=== PATIENT | male | born 1990 | race Caucasian/White ===

== ENCOUNTER 2016-09-15 19:18 | Emergency (ER) | payer OTHER ==
[2016-09-15 19:56] VITALS: TEMP 98.1; BMI 22.1
--- NOTE | 2016-09-15 20:05 | EDPRACDOC ---
<Franky Campbell - Last Filed: 09/15/16 21:44> - General Information Information Source: Patient - History of Present Illness Onset: 1 month HPI: Pt c/o L shoulder pain with deformity x 1 month. Pt states initial injury was falling onto shoulder while doing inverted push ups. Pt states unable to move shoulder and has numbness and weakness. Pt states when arm is out of sling it falls to side. R hand dominate. Description: Reports: With Use, At Rest Location: Reports: Left Circumstances: Reports: Spontaneous Relevant History: Reports: Shoulder Dislocation Dominant Hand: Right Pain Severity: Moderate Able to Move Shoulder?: No Associated Signs & Symptoms: Reports: Swelling, Numbness, Neck pain, Arm pain <Ines Baca - Last Filed: 09/15/16 22:06> - General Information Stated Complaint: LT SHOULDER PAIN NO RECENT INJURY NO FEELING IN L Time Seen by Provider: 09/15/16 19:58 Home Medications: Home Medications Cyclobenzaprine HCl [Flexeril] 10 mg PO TID 09/15/16 Oxycodone HCl/Acetaminophen [Percocet 5-325 mg Tablet] 1 tab PO Q6H PRN #20 tab 09/15/16 Allergies/Adverse Reactions: Allergies Allergy/AdvReac Type Severity Reaction Status Date / Time ibuprofen Allergy Anaphylaxis Verified 09/15/16 21:03 * Penicillins Allergy Anaphylaxis Verified 09/15/16 21:03 * ED Past Medical History - History Reviewed Yes Nurses notes reviewed and agree except as marked - Social Medical History Smoking Status: Current status unknown ETOH: None Substance Abuse: None <Ines Baca - Last Filed: 09/15/16 22:06> EDM Review of Systems - Review of Systems Constitutional: No Symptoms Reported. negative: Fever, Chills, Weakness, Fatigue, Loss of Appetite Respiratory: No Symptoms Reported. negative: Cough, Brassy Cough, Barky Cough, Shortness of Breath, Wheezing, Hemoptysis Cardiovascular: No Symptoms Reported. negative: Chest Pain, Palpitations, Syncope, Edema, Orthopnea, PND, Skin Mottling, Cyanosis Neurological: Numbness Musculoskeletal: Arm, Neck, Shoulder Integumentary: No Symptoms Reported. negative: Itching, Rash, Bruising, Wound Allergic/Immunologic: No Symptoms Reported. negative: Hives, Itching Hematologic: No Symptoms Reported. negative: Lymphadenopathy, Easy Bruising, Easy Bleeding Psychiatric: No Symptoms Reported. negative: Anxiety, Depression, Hallucinations, Insomnia, Suicidal <Ines Baca - Last Filed: 09/15/16 22:06> - Physical Exam Last recorded Vital Signs: Last Vital Signs Temp 98.1 F 09/15/16 19:56 Pulse 92 09/15/16 21:24 Resp 20 09/15/16 21:24 BP 142/86 09/15/16 21:24 Pulse Ox 98 09/15/16 21:24 Oxygen Pulse Oxygen Saturation 98 O2 Device Room Air Oxygen Flow Rate 2 Fraction of Inspired Oxygen ( FIO2) <Franky Campbell - Last Filed: 09/15/16 21:44> - Physical Exam Constitutional: Alert Oriented to: Time, Person, Place Last recorded Vital Signs: Last Vital Signs Temp 98.1 F 09/15/16 19:56 Pulse 82 09/15/16 19:56 Resp 18 09/15/16 19:56 BP 142/90 09/15/16 19:56 Pulse Ox 97 09/15/16 19:56 Oxygen Pulse Oxygen Saturation 97 O2 Device Room Air Oxygen Flow Rate Fraction of Inspired Oxygen ( FIO2) - HEENT Head: Normal ( normocephalic) Neck: Paraspinal Tenderness - Respiratory/Cardiovascular Respiratory: Normal - CTA (BBS clear to auscultation without adventitious sounds ) Cardiovascular: Normal (RRR without murmur, gallop or rub) - Musculoskeletal Back: Normal (Non-Tender) Extremities: Normal (Normal tone, Pulses 2+ No cyanosis or edema, FROM) - Integumentary Skin: Normal, Warm, Dry Lymphatics: Normal (no adenopathy) - Neurologic Memory Impaired: Normal Motor Function: Normal (Normal tone, Pulses 2+ No cyanosis or edema, FROM) Mood Description: Normal Perception: Normal <Ines Baca - Last Filed: 09/15/16 22:06> ED Shoulder Problem Exam - Musculoskeletal Clavicle: Tender Shoulder: Deformity, Limited ROM Arm: Mild Tenderness Distal Function/Circulation: Normal <Ines Baca - Last Filed: 09/15/16 22:06> ED Procedures - Fracture/Dislocation Reduction Informed of risks, benefits and alternatives described.: Yes Informed Consent Signed: Written Indication: Dislocation (LEFT SHOULDER) Attempted reduction was performed: Yes Reduction Attempts: 2 Sedation performed under my direct supervision See flowsheet: Yes Intra-articular anesthetic was placed: No Nerve Block Performed: was NOT used Joint Reduction Site: shoulder (L) Pre-Procedure NV Exam: Yes (NORMAL) Shoulder Reduction was performed by: Traction-Counteraction Post Reduction radiographs showed: Joint Reduced Post Procedure Nerve Exam: NORMAL Notes: 09/15/16 21:46 PATIENT CHRONICALLY DISLOCATES AND SUBLUXES HIS SHOULDER. HE HAS BEEN TOLD HE HAS HUMERAL HEAD NECROSIS AND WILL REQUIRE SURGERY <Franky Campbell - Last Filed: 09/15/16 21:44> ED-Moderate Sedation Procedure - Procedure Indication: LEFT SHOULDER REDUCTION Informed of risks, benefits and alternatives described.: Yes Informed Consent Signed: Written ASA Status: 2 Physician Performing Procedure: Yes Physician Providing Sedation: Adrian Trained Observer: Ines Baca Procedure Start Time: 21:48 - Patient Information Patient Age: 26 History and Physical Completed: Yes - Oxygen Oxygen Flow Rate: 2 Oxygen Delivery Method: Nasal Cannula - Office Administration Office Administration: Yes EKG Rhythm: Sinus Rhythm - Medications Dose #1 Administration Time: 21:48 Medication Given: Propofol Dose Given: 150 Medication Unit: mg Route: IV Patient Reaction: Sleeping Dose #2 Administration Time: 21:48 Medication Given: Propofol Dose Given: 50 Medication Unit: mg Route: IV Patient Reaction: Sleeping - Last Dose of Medication Last Medication Time: 21:48 - Assessment Skin: Warm Abdomen: Soft Side Rails Up x 2: Yes Drinking Fluids: Yes Gag reflex present: Yes Restraints: No - Adverse Event Adverse Event: No <Franky Campbell - Last Filed: 09/15/16 21:44> - Differential Diagnosis Cervical disc disease, Dislocation, Rotator cuff injury, Sprain - Diagnostic Imaging Shoulder Image interpreted by: Radiologist IMPRESSION: Anterior inferior shoulder dislocation. No fracture identified. <Ines Baca - Last Filed: 09/15/16 22:06> ED Critical Care Note - Critical Care Note Total Time (mins): 30 <Franky Campbell - Last Filed: 09/15/16 21:44> Decision Time to Discharge: 21:44 - Departure Yes I personally saw and evaluated the patient. Disposition: Home Education/Counseling Given To: Patient Education/Counseling Given Regarding: Diagnosis, Treatment, Prognosis, Follow Up <Franky Campbell - Last Filed: 09/15/16 21:44> - Departure Disposition: Home <Ines Baca - Last Filed: 09/15/16 22:06> - Departure Condition: Good Final Diagnosis: Recurrent dislocation, left shoulder Instructions: Shoulder Dislocation (ED), RICE: Routine Care for Injuries Referrals: None,No Provider [Primary Care Provider] - One Week Josue Us MD [Staff Physician] - One Week Prescriptions: New Oxycodone HCl/Acetaminophen [Percocet 5-325 mg Tablet] 1 tab PO Q6H PRN #20 tab PRN Reason: Pain No Action Cyclobenzaprine HCl [Flexeril] 10 mg PO TID Additional Instructions: Elevate affected area as much as possible, apply cold compresses 20 mins at a time as needed for pain or swelling, wear splint until you follow up with orthopedics.
[2016-09-15] MEDS ORDERED: MORPHINE 4 MG/ML INJECTION IV ONE (20:29)
--- NOTE | 2016-09-15 20:38 | DIRPT ---
CLINICAL DATA: Left shoulder pain 1 month ago. Left shoulder pain. Initial encounter. EXAM: LEFT SHOULDER - 2+ VIEW COMPARISON: None. FINDINGS: Anterior inferior dislocation of the humeral head is seen. No fracture identified. No other bone lesions identified. IMPRESSION: Anterior inferior shoulder dislocation. No fracture identified. Electronically Signed By: Jay Terry M.D. On: 09/15/2016 20:35
[2016-09-15] MEDS ORDERED: PROPOFOL 200 MG/20 ML VIAL IV ONE (20:53)
[2016-09-15] MEDS ORDERED: OXYCODONE HCL 5 MG TABLET PO ONE (21:52)
--- NOTE | 2016-09-15 22:15 | DIRPT ---
CLINICAL DATA: Post reduction. Initial encounter. EXAM: PORTABLE LEFT SHOULDER - 2+ VIEW COMPARISON: 09/15/2016 FINDINGS: Two images are submitted. The first image (scapular y) shows a located glenohumeral joint but on the second and later image there is again anterior glenohumeral dislocation. No indication of acute fracture. IMPRESSION: Dislocated left glenohumeral joint, as above. Electronically Signed By: Lonnie Fuentes M.D. On: 09/15/2016 22:13
--- NOTE | 2016-09-15 22:19 | DIRPT ---
CLINICAL DATA: Postreduction second attempt. Initial encounter. EXAM: LEFT SHOULDER - 1 VIEW COMPARISON: Today at 2135 hours FINDINGS: In the frontal projection the left glenohumeral joint is relocated. No indication of acute fracture. IMPRESSION: Relocated left glenohumeral joint in the frontal projection. Electronically Signed By: Lonnie Fuentes M.D. On: 09/15/2016 22:16
[2016-09-15 22:22] VITALS: BP 127/75; PULSE 81
== END 2016-09-15 22:29 | disposition home or self-care (01) ==
LOC: EEVIPCON 19:18 → EDMC 19:18
DX: S43.005A Unspecified dislocation of left shoulder joint, initial encounter (principal); X58.XXXA Exposure to other specified factors, initial encounter; Y93.B2 Activity, push-ups, pull-ups, sit-ups
CPT/HCPCS: 23650; 73020; 73030; 96374; 99152; 99283; J2270; J3490

== ENCOUNTER 2016-09-19 18:33 | Emergency (ER) | payer OTHER ==
[2016-09-19 21:13] VITALS: BMI 21.5
--- NOTE | 2016-09-19 21:36 | DIRPT ---
CLINICAL DATA: Cough and shortness of breath EXAM: CHEST 2 VIEW COMPARISON: None FINDINGS: The heart size and mediastinal contours are within normal limits. Both lungs are clear. The visualized skeletal structures are unremarkable. IMPRESSION: No active cardiopulmonary disease. Electronically Signed By: Rae Aguilera M.D. On: 09/19/2016 21:33
--- NOTE | 2016-09-19 22:19 | EDPRACDOC ---
- General Information Chief Complaint: Flu-Like Symptoms Stated Complaint: NIGHT SWEATS, CHILLS, COUGH Mode Of Arrival: [facility]dc Home Medications: Home Medications Cyclobenzaprine HCl [Flexeril] 10 mg PO TID 09/15/16 Diphenhydramine [Benadryl] 25 mg PO TID 09/19/16 Guaifenesin 100 mg PO QID PRN 09/19/16 Hydrocodone Bit/Acetaminophen [Mercer 5-325 Tablet] 1 tab PO Q4H PRN 09/19/16 Lactulose 10 gm PO DAILY 09/19/16 Trimethoprim-Sulfamethoxazole [Septra Ds, Bactrim Ds] 1 tab PO BID 09/19/16 Allergies/Adverse Reactions: Allergies Allergy/AdvReac Type Severity Reaction Status Date / Time amoxicillin Allergy Anaphylaxis Verified 09/19/16 22:18 * ibuprofen Allergy Anaphylaxis Verified 09/19/16 21:13 * Penicillins Allergy Anaphylaxis Verified 09/19/16 21:13 * - History of Present Illness Onset: 2 DAYS HPI: Pt from [facility] C/o flu like sx with cough, CP, body aches, RITTER, fever up to 102.1 , sob, chills x 2 days. Dx by [facility] MD with bronchitis yesterday, and given abx , but got worse. Today dx with "pneumonia with fluid in the lungs". No CXR taken prior to DX apparently. Denies N/V/D. Med hx = none. Shortness of Breath: Mild Relevant History of: Reports: None Cough: Reports: Non-productive Rhinorrhea: Reports: None Fever Severity/Quality: Reports: greater than 100.5 F Ear Symptoms: Reports: None Recently treated infections: Reports: URI Associated Signs & Symptoms: Reports: Cough, Fever, Headache, Myalgia Oral Intake: Decreased Urinary Output: Decreased ED Past Medical History - History Reviewed Yes Nurses notes reviewed and agree except as marked - Patient Medical History Psychological History: Denies: Depression - Social Medical History Smoking Status: Current status unknown EDM Review of Systems - Review of Systems ROS Negative Except as Marked: Yes All systems reviewed and were negative except as marked Respiratory: Cough, Shortness of Breath Cardiovascular: Chest Pain - Physical Exam Constitutional: No apparent distress, Alert Oriented to: Time, Person, Place Last recorded Vital Signs: Last Vital Signs Temp 98.0 F 09/19/16 18:36 Pulse 111 09/19/16 18:36 Resp 18 09/19/16 18:36 BP 134/86 09/19/16 18:36 Pulse Ox 98 09/19/16 18:36 Oxygen Pulse Oxygen Saturation 98 O2 Device Room Air Oxygen Flow Rate Fraction of Inspired Oxygen ( FIO2) - HEENT Head: Normal Eye Exam: negative: Conjunctival Injection, Scleral Icterus Oropharynx: negative: Drooling TMJ: Normal Nose: No Symptoms Reported Neck: Normal - Respiratory/Cardiovascular Respiratory: Normal - CTA Cardiovascular: Normal Respiratory/Cardiovascular Comment: no rales noted. lungs CTAB. O2 sats nml. CP is reproducible with palpation, and right arm movement. Pt c/o pain and aches all over his body. - GI Auscultation: Normal Palpation: Normal Tenderness: Non tender - Musculoskeletal Back: Normal Extremities: Normal - Integumentary Skin: Normal - Neurologic Mood Description: Normal Thought: Coherent Perception: Normal - Results 09/19/16 22:43 09/19/16 22:43 - Diagnostic Imaging Chest Image interpreted by: Radiologist EXAM: CHEST 2 VIEW COMPARISON: None FINDINGS: The heart size and mediastinal contours are within normal limits. Both lungs are clear. The visualized skeletal structures are unremarkable. IMPRESSION: No active cardiopulmonary disease. Electronically Signed By: Rae Aguilera M.D. On: 09/19/2016 21:33 Decision Time to Discharge: 23:50 - Departure Disposition: law enforcement Condition: Stable Final Diagnosis: Flu-like symptoms Instructions: Influenza (ED) Education/Counseling Given To: Patient Education/Counseling Given Regarding: Diagnosis, Treatment, Prognosis, Follow Up Referrals: Steven Dillon MD [Primary Care Provider] - One Week Prescriptions: No Action Cyclobenzaprine HCl [Flexeril] 10 mg PO TID Diphenhydramine [Benadryl] 25 mg PO TID Trimethoprim-Sulfamethoxazole [Septra Ds, Bactrim Ds] 1 tab PO BID Hydrocodone Bit/Acetaminophen [Mercer 5-325 Tablet] 1 tab PO Q4H PRN PRN Reason: Pain Guaifenesin 100 mg PO QID PRN PRN Reason: Cough Lactulose 10 gm PO DAILY Additional Instructions: Follow up with primary care. Take tylenol or motrin for fever, headaches and body aches. Drink plenty of fluids. Return to ED for any new or worsening symptoms.
[2016-09-19] MEDS ORDERED: ACETAMINOPHEN 325 MG/TAB TABLET PO ONE (22:49)
[2016-09-19 23:00] LABS: AUTOMATED BASOPHIL 0.3 % (0-2); AUTOMATED EOSINOPHIL 1.6 % (0-5); AUTOMATED LYMPH 36.1 % (17-44); AUTOMATED MONOCYTE 11.8 % (3-10); AUTOMATED NEUTROPHIL 50.2 % (45-76); MPV 8.8 fL (7.4-10.4)
[2016-09-19 23:11] LABS: BLOOD UREA NITROGEN 18 MG/DL (9-20); CALCULATED OSMOLALITY 266 MOs/Kg (270-290); CHLORIDE 100 mEq/L (98-107); GLUCOSE 90 mg/dL (70-99); SODIUM LEVEL 137 mEq/L (137-146); TOTAL PROTEIN 7.1 G/DL (6.3-8.2)
[2016-09-19 23:26] LABS: LEUKOCYTES/URINE TRACE (NEGATIVE); NITRITE/URINE NEG (NEGATIVE); URINE OCCULT BLOOD NEG (NEG/TRACE)
[2016-09-19 23:47] VITALS: TEMP 98.6
[2016-09-20 00:02] VITALS: BP 128/77; PULSE 88
== END 2016-09-20 | disposition home or self-care (01) ==
LOC: ED 18:33
DX: J11.1 Influenza due to unidentified influenza virus with other respiratory manifestations (principal)
CPT/HCPCS: 36415; 71020; 80053; 81001; 85025; 99283; J3490